=== PATIENT | female | born 1940 | race Caucasian/White ===

== ENCOUNTER 2016-09-28 04:55 | Day surgery (SDC) | payer OTHER, MEDICARE ==
[2016-09-25 12:48] VITALS: BMI 18.7
[2016-09-28] MEDS ORDERED: KETOROLAC TROMETHAMINE 30 MG/1 ML VIAL ONE (10:29)
[2016-09-28] MEDS ORDERED: PROPOFOL 20 ML ONE (10:29)
[2016-09-28] MEDS ORDERED: DEXAMETHASONE SOD PHOSPHATE 4 MG/1 ML VIAL ONE (10:29)
[2016-09-28] MEDS ORDERED: ROCURONIUM BROMIDE 50 MG/5 ML VIAL ONE (10:29)
[2016-09-28] MEDS ORDERED: MIDAZOLAM HCL 2 MG/2 ML SINGLE DOSE VIAL ONE (10:29)
[2016-09-28] MEDS ORDERED: LACTATED RINGERS SOLUTION 1,000 ML IV SCH (10:45)
[2016-09-28] MEDS ORDERED: PROMETHAZINE HCL 25 MG/1 ML VIAL IVPUSH PRN (10:45)
[2016-09-28] MEDS ORDERED: ONDANSETRON 4 MG/2 ML VIAL IVPUSH PRN (10:45)
--- NOTE | 2016-09-28 11:01 | PROC ---
Procedure Note Procedure: BRONCHSCOPY NOTE After discussing the risks and benefits of the procedure including bleeding and pneumothorax, informed consent was obtained. Pt was placed under general anesthesia and intubated with size 8.0 ETT by anesthesia. [employer] video bronchoscope was passed via the ETT and the airways were examined down to the subsegmental level. The luisana was sharp, no endobronchial lesions were noted on either side. There were scattered mucous plugs throughout the airways. LLL posterior subsegment was visualized were the CT abnormality was and there was no obstruction. LLL washed, samples to be sent for culture and cytology. Bronchoscope then withdrawn and procedure terminated. No immediate complications. Pre-op Dx: atelectasis Post-op Dx: same likely due to mucous plugging Plan: - f/u cultures and cytology Tyler Whipple MD
[2016-09-28 12:14] VITALS: TEMP 98
[2016-09-28 13:02] VITALS: PULSE 73
[2016-09-28 13:58] VITALS: BP 120/74
--- NOTE | 2016-09-29 14:33 | PATH ---
Cytology Non-Gynecological Report Patient Name: JODEE PETERS [facility]. Rec. #: [id number] /Age/Gender: 1940 (Age: 75) / F Account: [id number] Location: [facility] [place] [facility] Taken: 09/28/2016 Received: 09/28/2016 Reported: 09/29/2016 Physicians: Tyler Whipple M.D. Specimen(s) Received LEFT LOWER LOBE WASHINGS Clinical History Atelectasis Final Diagnosis LUNG, LEFT LOWER LOBE, BRONCHIAL WASHINGS: SATISFACTORY FOR EVALUATION. NO MALIGNANT CELLS IDENTIFIED. REACTIVE BRONCHIAL CELLS, MACROPHAGES AND ACUTE INFLAMMATION. Comment: Special stains for fungal and acid-fast organisms are pending; results will be reported in an addendum. Electronically Signed Davion Becker M.D. Gross Description Received is few tissue fresh fluid in 50% alcohol. Two cytofunnel slides and one cell block are made.
== END 2016-09-28 13:30 | disposition home or self-care (01) ==
LOC: JASU-SURG 04:55
PROVIDERS: ATTEND Internal Medicine
PROC: 8E0WXBF Computer Assisted Procedure of Trunk Region, With Fluoroscopy (ICD-10-PCS; 2016-09-28)
PROC: 0B9J8ZX Drainage of Left Lower Lung Lobe, Via Natural or Artificial Opening Endoscopic, Diagnostic (ICD-10-PCS; principal; 2016-09-28 10:00)
DX: J98.11 Atelectasis (principal)
CPT/HCPCS: 87070; 87102; 87116; 87205; 87206; 87210; 88108; 88305-TC; 88312-TC; 94760

== ENCOUNTER 2017-04-04 23:15 | Emergency (ER) | payer OTHER, MEDICARE ==
[2017-04-05 00:19] VITALS: BP 165/98; PULSE 77; TEMP 98.2; BMI 20.9
[2017-04-05] MEDS ORDERED: FAMOTIDINE 20 MG/50 ML IVPB 50 ML IVPB ONE ×2 (01:59→02:16)
[2017-04-05] MEDS ORDERED: methylPREDNISolone NA SUCC 125 MG/2 ML VIAL IVPB ONE (01:59)
[2017-04-05] MEDS ORDERED: methylPREDNISolone NA SUCC 125 MG/2 ML VIAL ONE ×2 (02:16→02:17)
--- NOTE | 2017-04-05 02:29 | PDOC ---
History of Present Illness - General Chief Complaint: Rash Stated Complaint: Allergic Reaction Time Seen by Provider: 04/05/17 01:11 History Source: Patient Exam Limitations: No Limitations - History of Present Illness Initial Comments: 04/05/17 02:24 76yo Female patient presents to ED c/o rash to back, trunk, hips, upper extremities starting 2 hours ago. Patient states she went out for dinner ate baked clams, and filet sole. When she got home, she began itching underneath her arms. Patient removed upper garments and noticed welts and hives to underarm and antecubital regions bilaterally. She denies diff breathing, CP, Back pain, n/v/d, fever, or any other complaints at this time. Timing/Duration: reports: just prior to arrival Severity: Yes: moderate Location: reports: extremities, torso. denies: none, face, feet, genitalia, generalized, hands, other, scalp Respiratory Risk Factors: reports: no cause identified. denies: exposure to illness, exposure to allergen, foods, insect bite, insect sting, medications, pollen, soaps, other Modifying Factors: worse with: antihistamine, calamine lotion, prednisone, scratching, topical steriods, other Associated Symptoms: reports: change in skin texture, hives, other (welts) Past History - Travel Traveled outside of the country in the last 30 days: No Close contact w/someone who was outside of country & ill: No - Past Medical History Allergies/Adverse Reactions: Allergies Allergy/AdvReac Type Severity Reaction Status Date / Time procaine HCl [From Novocain] Allergy Intermediate Verified 04/05/17 00:13 Iodinated Contrast Media - Allergy Verified 04/05/17 00:13 Oral and [IV Dye, Iodine Containing Contrast ] epinephrine AdvReac Intermediate Verified 04/05/17 00:13 lansoprazole [From Prevacid] AdvReac Intermediate Elevated Verified 04/05/17 00: 13 Blood Pressure DUST Allergy SOB Uncoded 04/05/17 00:13 NEXIUM AdvReac Intermediate Difficulty Uncoded 04/05/17 00:13 Breathing Home Medications: Ambulatory Orders Losartan Potassium [Cozaar -] 25 mg PO DAILY 07/02/12 Calcium Carbonate/Vitamin D3 [Calcium 500 + Vit D 400 Tablet] 1 each PO DAILY Aspirin [ASA -] 325 mg PO DAILY 07/23/15 Mometasone Furoate [Asmanex 220Mcg -] 1 inh IH DAILY 07/23/15 Albuterol Sulfate [Proair Hfa -] 1 - 2 inh PO QID PRN 07/24/15 Multivitamins [Multivit ([facility] Formulary)] 1 tab PO DAILY 07/24/15 Alendronate Sodium [Binosto] 70 mg PO WEEKLY 09/25/16 Ascorbate Calcium [Vitamin C] 500 mg PO DAILY 09/25/16 Cholecalciferol (Vitamin D3) [Vitamin D3] 400 unit PO BID 09/25/16 L.acidoph,Paracasei, B.lactis [Probiotic] 1 each PO HS 09/25/16 Triamcinolone Acetonide [Nasacort] 10.8 ml NS DAILY 09/25/16 Famotidine [Pepcid -] 40 mg PO BID #14 tablet 04/05/17 Prednisone 10 mg PO ASDIR #16 tablet 04/05/17 Anemia: No Asthma: Yes Cancer: Yes (BREAST) Cardiac Disorders: Yes (Mitral valve prolapse) CVA: No COPD: No CHF: No Dementia: No Diabetes: No GI Disorders: Yes (IBS, diverticulosis) Disorders: No HTN: Yes Hypercholesterolemia: No Liver Disease: No Seizures: No Thyroid Disease: Yes (Hipolito thyroiditis) Other medical history: Osteoporosis, eczema - Surgical History Abdominal Surgery: No Appendectomy: No Cardiac Surgery: No Cholecystectomy: Yes (LAP) Lung Surgery: No Neurologic Surgery: No Orthopedic Surgery: No - Psycho/Social/Smoking Cessation Hx Suicidal Ideation: No Smoking Status: No Smoking History: Never smoked Have you smoked in the past 12 months: No Number of Cigarettes Smoked Daily: 0 If you are a former smoker, when did you quit?: 1966 Information on smoking cessation initiated: No Hx Alcohol Use: No Drug/Substance Use Hx: No Substance Use Type: None Hx Substance Use Treatment: No Review of Systems - Review of Systems Able to Perform ROS?: Yes Is the patient limited Lithuanian proficient: No Integumentary: Yes: Erythema, Pruritus, Rash, Other (Hives and Welts) All Other Systems: Reviewed and Negative *Physical Exam - Vital Signs Last Vital Signs Temp Pulse Resp BP Pulse Ox 98.2 F 77 20 165/98 97 04/05/17 00:13 04/05/17 00:13 04/05/17 00:13 04/05/17 00:13 04/05/17 00:13 - Physical Exam General Appearance: Yes: Nourished, Appropriately Dressed, Mild Distress. No: Apparent Distress, Moderate Distress, Severe Distress Neck: positive: Trachea midline, Supple. negative: Stridor, Lymphadenopathy (R) , Lymphadenopathy (L) Respiratory/Chest: positive: Lungs Clear, Normal Breath Sounds. negative: Chest Tender, Respiratory Distress, Accessory Muscle Use, Labored Respiration, Rapid RR, Rhonchi, Stridor, Wheezing Cardiovascular: positive: Regular Rhythm, Regular Rate Gastrointestinal/Abdominal: positive: Normal Bowel Sounds, Flat, Soft. negative : Distended, Guarding, Rebound, Tenderness Extremity: positive: Normal Capillary Refill, Normal Inspection, Normal Range of Motion. negative: Pedal Edema, Swelling, Calf Tenderness, Erythema, Inflammation Integumentary: positive: Normal Color, Dry, Warm, Erythema, Hives, Other (Welts) . 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, Fully Oriented, Alert, Normal Mood/ Affect, Normal Response, Motor Strength 5/5 ED Treatment Course - Medications Given in the ED: ED Medications Discontinued Medications Generic Name Dose Route Start Last Admin Trade Name Freq PRN Reason Stop Dose Admin Diphenhydramine HCl 25 mg 04/05/17 01:59 04/05/17 02:15 Benadryl Injection - IVPUSH 04/05/17 02:00 25 mg ONCE ONE Administration Methylprednisolone Sodium Succinate 125 mg 04/05/17 01:59 04/05/17 02:15 Solu-Medrol - IVPB 04/05/17 02:00 125 mg ONCE ONE Administration *DC/Admit/Observation/Transfer Diagnosis at time of Disposition: Allergic reaction Qualifiers: Encounter type: initial encounter Qualified Code(s): T78.40XA - Allergy, unspecified, initial encounter - Discharge Dispostion Disposition: HOME Condition at time of disposition: Improved Admit: No - Prescriptions Prescriptions: Famotidine [Pepcid -] 40 mg PO BID #14 tablet Prednisone 10 mg PO ASDIR #16 tablet - Patient Instructions Printed Discharge Instructions: DI for Adverse Drug Reaction -- Allergic Additional Instructions: Take medications as prescribed. Follow up with your primary care provider. Print Language: DIVEHI
[2017-04-05] MEDS ORDERED: predniSONE 20 MG TABLET (UD) PO SCH (10:00)
== END 2017-04-05 04:14 | disposition home or self-care (01) ==
LOC: JER 23:15
PROC: 3E033GC Introduction of Other Therapeutic Substance into Peripheral Vein, Percutaneous Approach (ICD-10-PCS; principal; 2017-04-04)
PROC: 3E0333Z Introduction of Anti-inflammatory into Peripheral Vein, Percutaneous Approach (ICD-10-PCS; 2017-04-04)
PROC: 3E033GC Introduction of Other Therapeutic Substance into Peripheral Vein, Percutaneous Approach (ICD-10-PCS; 2017-04-04)
DX: L50.0 Allergic urticaria (principal); T78.49XA Other allergy, initial encounter; X58.XXXA Exposure to other specified factors, initial encounter; I10 Essential (primary) hypertension; E06.3 Autoimmune thyroiditis; J45.909 Unspecified asthma, uncomplicated; Z85.3 Personal history of malignant neoplasm of breast
CPT/HCPCS: 96365; 96375; 99281-25

== ENCOUNTER 2017-04-05 22:36 | Emergency (ER) | payer OTHER, MEDICARE ==
[2017-04-05 22:47] VITALS: BP 156/95; PULSE 81; TEMP 98; BMI 20.9
--- NOTE | 2017-04-05 22:59 | PDOC ---
Attending Attestation - Resident Resident Name: leyda - HPI HPI: 04/05/17 22:59 76-year-old female was here yesterday for hives and paretic rash and developed some more hives this evening. She came in because she was concerned that maybe it was spread to her eyes. I explained to her that she didn't have shingles and the hives, nontender her eyes, although she might have some periorbital edema which she does not now. 04/05/17 22:59 - Physicial Exam PE: 04/05/17 22:59 Well-nourished, well-developed 76-year-old female looking ambulance stated age presented because she has had recurrent hives She has a history of multiple environmental allergies Uvula midline, no edema Lungs are clear to auscultation. There is no wheezing or crackles Heart was a regular rate and rhythm S1, S2. Abdomen is soft, nontender, no guarding Extremities a few scattered hives Alert and oriented 3, ambulatory - Medical Decision Making 04/05/17 23:01 Patient has a follow-up appointment with her doctor tomorrow. She is driving herself home and will stop and give some Benadryl.
--- NOTE | 2017-04-05 23:09 | PDOC ---
History of Present Illness - General Chief Complaint: Allergic Reaction Stated Complaint: ALLERGIC REACTION Time Seen by Provider: 04/05/17 22:46 - History of Present Illness Initial Comments: 04/05/17 23:04 76 yo female with h/o previous multiple drug, food, and contact allergens who presents for allergic reaction. She reports widespread, redness, itching, and rash involving extremities, groin, buttock, hip, and around mouth. Denies any new contact exposures to detergent, soaps, clothing, laundry, shampoo, or recent outdoor contact exposure. She recalls eating seafood within the past 24 hours and possibly attributed widespread allergic reaction to food intake. Denies OTC antihistamine use or topical application for symptoms. Denies eye involvement of rash, airway compromise, SOB, or mucosal involvement. Past History - Past Medical History Allergies/Adverse Reactions: Allergies Allergy/AdvReac Type Severity Reaction Status Date / Time procaine HCl [From Novocain] Allergy Intermediate Verified 04/05/17 00:13 Iodinated Contrast Media - Allergy Verified 04/05/17 00:13 Oral and [IV Dye, Iodine Containing Contrast ] epinephrine AdvReac Intermediate Verified 04/05/17 00:13 lansoprazole [From Prevacid] AdvReac Intermediate Elevated Verified 04/05/17 00: 13 Blood Pressure DUST Allergy SOB Uncoded 04/05/17 00:13 NEXIUM AdvReac Intermediate Difficulty Uncoded 04/05/17 00:13 Breathing Home Medications: Ambulatory Orders Losartan Potassium [Cozaar -] 25 mg PO DAILY 07/02/12 Calcium Carbonate/Vitamin D3 [Calcium 500 + Vit D 400 Tablet] 1 each PO DAILY Aspirin [ASA -] 325 mg PO DAILY 07/23/15 Mometasone Furoate [Asmanex 220Mcg -] 1 inh IH DAILY 07/23/15 Albuterol Sulfate [Proair Hfa -] 1 - 2 inh PO QID PRN 07/24/15 Multivitamins [Multivit ([facility] Formulary)] 1 tab PO DAILY 07/24/15 Alendronate Sodium [Binosto] 70 mg PO WEEKLY 09/25/16 Ascorbate Calcium [Vitamin C] 500 mg PO DAILY 09/25/16 Cholecalciferol (Vitamin D3) [Vitamin D3] 400 unit PO BID 09/25/16 L.acidoph,Paracasei, B.lactis [Probiotic] 1 each PO HS 09/25/16 Triamcinolone Acetonide [Nasacort] 10.8 ml NS DAILY 09/25/16 Famotidine [Pepcid -] 40 mg PO BID #14 tablet 04/05/17 Prednisone 10 mg PO ASDIR #16 tablet 04/05/17 Anemia: No Asthma: Yes Cancer: Yes (BREAST) Cardiac Disorders: Yes (Mitral valve prolapse) CVA: No COPD: No CHF: No Dementia: No Diabetes: No GI Disorders: Yes (IBS, diverticulosis) Disorders: No HTN: Yes Hypercholesterolemia: No Liver Disease: No Seizures: No Thyroid Disease: Yes (Hipolito thyroiditis) - Surgical History Abdominal Surgery: No Appendectomy: No Cardiac Surgery: No Cholecystectomy: Yes (LAP) Lung Surgery: No Neurologic Surgery: No Orthopedic Surgery: No - Psycho/Social/Smoking Cessation Hx Suicidal Ideation: No Smoking Status: No Smoking History: Never smoked Have you smoked in the past 12 months: No Number of Cigarettes Smoked Daily: 0 If you are a former smoker, when did you quit?: 1966 Hx Alcohol Use: No Drug/Substance Use Hx: No Substance Use Type: None Hx Substance Use Treatment: No Review of Systems - Review of Systems Comments:: 04/05/17 23:09 GENERAL/CONSTITUTIONAL: No fever or chills. No weakness. HEAD, EYES, EARS, NOSE AND THROAT: No change in vision. No ear pain or discharge. No sore throat. CARDIOVASCULAR: No chest pain or shortness of breath RESPIRATORY: No cough, wheezing, or hemoptysis. GASTROINTESTINAL: No nausea, vomiting, diarrhea or constipation. GENITOURINARY: No dysuria, frequency, or change in urination. MUSCULOSKELETAL: No joint or muscle swelling or pain. No neck or back pain. SKIN: + Rash NEUROLOGIC: No headache, vertigo, loss of consciousness, or change in strength/ sensation. ENDOCRINE: No increased thirst. No abnormal weight change HEMATOLOGIC/LYMPHATIC: No anemia, easy bleeding, or history of blood clots. ALLERGIC/IMMUNOLOGIC: No hives or skin allergy. *Physical Exam - Vital Signs Last Vital Signs Temp Pulse Resp BP Pulse Ox 98 F 81 18 156/95 99 04/05/17 22:43 04/05/17 22:43 04/05/17 22:43 04/05/17 22:43 04/05/17 22:43 - Physical Exam Comments: 04/05/17 23:09 GENERAL: Awake, alert, and fully oriented, in no acute distress HEAD: No signs of trauma, normocephalic, atraumatic EYES: PERRLA, EOMI, sclera anicteric, conjunctiva clear ENT: Auricles normal inspection, hearing grossly normal, nares patent, oropharynx clear without exudates. Moist mucosa NECK: Normal ROM, supple, no lymphadenopathy, JVD, or masses LUNGS: No distress, speaks full sentences, clear to auscultation bilaterally HEART: Regular rate and rhythm, normal S1 and S2, no murmurs, rubs or gallops, peripheral pulses normal and equal bilaterally. ABDOMEN: Soft, nontender, normoactive bowel sounds. No guarding, no rebound. No masses EXTREMITIES: Normal inspection, Normal range of motion, no edema. No clubbing or cyanosis. NEUROLOGICAL: Cranial nerves II through XII grossly intact. Normal speech, normal gait, no focal sensorimotor deficits SKIN: + Rash/wheals over anterior upper and lower extremities, perioral involvement, trunk, BL hip and groin. Skin is Warm, Dry, normal turgor. Medical Decision Making - Medical Decision Making 04/05/17 23:10 Pt. is 76 yo female with h/o of multiple drug/food allergies and contact hypersensitivity reactions who presents with diffuse rash. Pt. denies airway or mucosal involvement within 24 hours since onset of diffuse rash. Was advised on OTC management of symptoms and suggested oral antihistamine/diphenhydramine for symptom relief. No other intervention needed. *DC/Admit/Observation/Transfer Diagnosis at time of Disposition: Allergic reaction Qualifiers: Encounter type: subsequent encounter Qualified Code(s): T78.40XD - Allergy, unspecified, subsequent encounter Contact dermatitis Qualifiers: Contact dermatitis type: unspecified - Discharge Dispostion Disposition: HOME Condition at time of disposition: Stable Admit: No - Attestations Physician Attestion: 04/05/17 23:16 I, Dr. Alex Sanches, attest that this document has been prepared under my direction and personally reviewed by me in its entirety. I further attest, that it accurately reflects all work, treatment, procedures and medical decision -making performed by me.
== END 2017-04-05 23:56 | disposition home or self-care (01) ==
LOC: JER 22:36
DX: L50.0 Allergic urticaria (principal); T78.40XD Allergy, unspecified, subsequent encounter; I10 Essential (primary) hypertension; J45.909 Unspecified asthma, uncomplicated; I34.1 Nonrheumatic mitral (valve) prolapse; E06.3 Autoimmune thyroiditis; M81.8 Other osteoporosis without current pathological fracture
CPT/HCPCS: 99282-25

== ENCOUNTER 2017-07-07 07:27 | Day surgery (SDC) | payer OTHER, MEDICARE ==
[2017-06-11 14:07] VITALS: BMI 20.9
[2017-07-07] MEDS ORDERED: PROPOFOL 20 ML ONE ×2 (08:30)
[2017-07-07 09:18] VITALS: TEMP 98.1
[2017-07-07 11:10] VITALS: BP 163/86; PULSE 75
--- NOTE | 2017-07-08 11:42 | PATH ---
Surgical Pathology Report Patient Name: JODEE PETERS [facility]. Rec. #: [id number] /Age/Gender: 1940 (Age: 76) / F Account: [id number] Location: [facility] Taken: 07/07/2017 Received: 07/07/2017 Reported: 07/08/2017 Physicians: Sasha Read M.D. Specimen(s) Received A: BX CECAL POLYP B: BX RIGHT COLON POLYP Clinical History Adenoma surveillance Polyps, diverticulosis Final Diagnosis A. COLON, CECUM, BIOPSY: TUBULAR ADENOMA. B. COLON, RIGHT, BIOPSY: COLONIC MUCOSA WITH NO PATHOLOGIC CHANGES. NO ACTIVE COLITIS, ARCHITECTURAL DISTORTION, GRANULOMATA, OR DYSPLASIA IDENTIFIED. NO MICROSCOPIC COLITIS IDENTIFIED (NO LYMPHOCYTIC OR COLLAGENOUS COLITIS IDENTIFIED). Electronically Signed Tyler Solorio M.D. Gross Description A. Received in formalin, labeled "biopsy cecal polyp" is a nava, irregular portion of soft tissue measuring 0.3 cm. in greatest dimension. The specimen is submitted in toto in one cassette. B. Received in formalin, labeled "biopsy right colon polyp" are 2 nava, irregular portions of soft tissue measuring 0.1 and 0.2 cm. in greatest dimension. The specimens are submitted in toto in one cassette. 07/07/201707/07/2017
== END 2017-07-07 10:30 | disposition home or self-care (01) ==
LOC: JASU-ENDO 07:27
PROVIDERS: ATTEND Internal Medicine Gastroenterology
PROC: 0DBH8ZX Excision of Cecum, Via Natural or Artificial Opening Endoscopic, Diagnostic (ICD-10-PCS; 2017-07-07)
PROC: 0DBK8ZX Excision of Ascending Colon, Via Natural or Artificial Opening Endoscopic, Diagnostic (ICD-10-PCS; principal; 2017-07-07 09:00)
DX: Z86.010 Personal history of colon polyps (principal); D12.0 Benign neoplasm of cecum; D12.2 Benign neoplasm of ascending colon; K57.30 Diverticulosis of large intestine without perforation or abscess without bleeding; K64.8 Other hemorrhoids
CPT/HCPCS: 88305-TC

== ENCOUNTER 2019-07-26 08:36 | Day surgery (SDC) | payer OTHER, MEDICARE ==
[2019-07-26 10:01] VITALS: BMI 20.5
[2019-07-26 11:09] VITALS: TEMP 97.7
[2019-07-26 13:18] VITALS: BP 151/74; PULSE 75
--- NOTE | 2019-07-27 16:13 | PATH ---
Surgical Pathology Report Patient Name: JODEE PETERS [facility]. Rec. #: [id number] /Age/Gender: 1940 (Age: 78) / F Account: [id number] Location: [facility]-ENDOS[facility] Taken: 07/26/2019 Received: 07/26/2019 Reported: 07/27/2019 Physicians: Sasha Read M.D. Specimen(s) Received A: SECOND PORTION AND BULB OF DUODENUM B: ANTRUM C: ASCENDING COLON POLYP Clinical History Occult GI bleeding, rule out ulcer and GERD, colonic adenoma surveillance Postoperative diagnosis: Atrophic gastritis, colon polyp Final Diagnosis A. DUODENUM, SECOND PORTION AND DUODENAL BULB, BIOPSY: DUODENAL MUCOSA WITH MILD CHRONIC DUODENITIS. B. STOMACH, ANTRUM, BIOPSY: GASTRIC ANTRAL MUCOSA WITH MILD CHRONIC GASTRITIS. IMMUNOHISTOCHEMICAL STAIN FOR H. PYLORI IS NEGATIVE. C. ASCENDING COLON, POLYP, BIOPSY: TUBULAR ADENOMA. Electronically Signed Lilliam Garcia M.D. Gross Description A. Received in formalin, labeled "biopsy second portion of duodenum and duodenal bulb" are 3 nava, irregular portions of soft tissue ranging from 0.3-0.4 cm. in greatest dimension. The specimens are submitted in toto in one cassette. B. Received in formalin, labeled "antrum biopsy" are 3 nava, irregular portions of soft tissue averaging 0.3 cm. in greatest dimension. The specimens are submitted in toto in one cassette. C. Received in formalin, labeled "ascending colon polyp" are 4 nava, irregular portions of soft tissue ranging from 0.2-0.3 cm. in greatest dimension. The specimens are submitted in toto in one cassette. 07/26/2019 saudi07/26/2019
== END 2019-07-26 12:05 | disposition home or self-care (01) ==
LOC: JASU-ENDO 08:36
PROVIDERS: ATTEND Internal Medicine Gastroenterology
PROC: 0DB68ZX Excision of Stomach, Via Natural or Artificial Opening Endoscopic, Diagnostic (ICD-10-PCS; 2019-07-26)
PROC: 0DBK8ZX Excision of Ascending Colon, Via Natural or Artificial Opening Endoscopic, Diagnostic (ICD-10-PCS; principal; 2019-07-26 09:45)
DX: Z12.11 Encounter for screening for malignant neoplasm of colon (principal); K92.1 Melena; Z86.010 Personal history of colon polyps; D12.2 Benign neoplasm of ascending colon; K64.8 Other hemorrhoids; K57.30 Diverticulosis of large intestine without perforation or abscess without bleeding; K29.40 Chronic atrophic gastritis without bleeding; I10 Essential (primary) hypertension; J44.9 Chronic obstructive pulmonary disease, unspecified

== ENCOUNTER 2020-08-11 15:40 | Emergency (ER) | payer OTHER, MEDICARE | END 2020-08-11 16:30 | disposition home or self-care (01) | LOC: JVIRT 15:40 | DX: Z03.818 Encounter for observation for suspected exposure to other biological agents ruled out (principal) | CPT/HCPCS: C9803; Q3014-GT; U0003 ==

== ENCOUNTER → 2021-04-09 | Day surgery (SDC) | payer OTHER, MEDICARE | END | disposition home or self-care (01) | LOC: FMAMMOTONE 11:50 | PROVIDERS: ATTEND Surgery | PROC: 0HBU3ZX Excision of Left Breast, Percutaneous Approach, Diagnostic (ICD-10-PCS; principal; 2021-04-09) | DX: N60.32 Fibrosclerosis of left breast (principal); N60.82 Other benign mammary dysplasias of left breast; N64.89 Other specified disorders of breast; R92.8 Other abnormal and inconclusive findings on diagnostic imaging of breast | CPT/HCPCS: 19081; 76098-TC-FY; 87899; A4648 ==

== ENCOUNTER 2021-05-14 04:19 | Day surgery (SDC) | payer OTHER, MEDICARE ==
[2021-05-12 16:03] VITALS: BMI 21.1
[2021-05-14] MEDS ORDERED: LIDOCAINE 1%/EPI 1:100000 (20 ML MULTI DOSE VIAL) ONE (10:06)
[2021-05-14] MEDS ORDERED: COCAINE HCL 4% TOPICAL SOLUTION 4 ML BOTTLE TP ONE ×2 (10:07→10:39)
[2021-05-14] MEDS ORDERED: MIDAZOLAM HCL 2 MG/2 ML SINGLE DOSE VIAL ONE (10:14)
[2021-05-14] MEDS ORDERED: PROPOFOL 20 ML ONE (10:14)
[2021-05-14] MEDS ORDERED: ROCURONIUM BROMIDE 50 MG/5 ML SYRINGE ONE (10:14)
[2021-05-14] MEDS ORDERED: LIDOCAINE HCL/PF 2% SDV 5ML VIAL ONE (10:14)
[2021-05-14] MEDS ORDERED: DEXAMETHASONE SOD PHOSPHATE 4 MG/1 ML VIAL ONE (10:15)
[2021-05-14] MEDS ORDERED: ONDANSETRON 4 MG/2 ML VIAL IVPUSH PRN (10:19)
[2021-05-14] MEDS ORDERED: ceFAZolin SODIUM 1 GM VIAL ONE (10:34)
[2021-05-14] MEDS ORDERED: ceFAZolin SODIUM 1 GM VIAL IVPB ONE (10:36)
[2021-05-14] MEDS ORDERED: LIDOCAINE 1%/EPI 1:100000 (20 ML MULTI DOSE VIAL) IJ ONE ×2 (10:40)
[2021-05-14] MEDS ORDERED: GLYCOPYRROLATE 0.2 MG/1 ML VIAL ONE ×2 (11:59→12:14)
[2021-05-14] MEDS ORDERED: SODIUM CHLORIDE 0.9% P/F 10 ML VIAL IJ ONE (12:06)
[2021-05-14] MEDS ORDERED: oxyCODONE HCL 5 MG TABLET PO PRN (12:23)
[2021-05-14] MEDS ORDERED: ACETAMINOPHEN 325 MG TABLET (FP) PO PRN (12:23)
[2021-05-14] MEDS ORDERED: LACTATED RINGERS SOLUTION 1,000 ML IV SCH (12:30)
[2021-05-14] MEDS ORDERED: ONDANSETRON 4 MG/2 ML VIAL ONE (14:06)
[2021-05-14 18:08] VITALS: BP 160/68; PULSE 70; TEMP 97.8
== END 2021-05-14 16:30 | disposition home or self-care (01) ==
LOC: JASU-SURG 04:19
PROVIDERS: ATTEND Otolaryngology
PROC: 09TV8ZZ Resection of Left Ethmoid Sinus, Via Natural or Artificial Opening Endoscopic (ICD-10-PCS; 2021-05-14)
PROC: 09TU8ZZ Resection of Right Ethmoid Sinus, Via Natural or Artificial Opening Endoscopic (ICD-10-PCS; 2021-05-14)
PROC: 8E09XBZ Computer Assisted Procedure of Head and Neck Region (ICD-10-PCS; 2021-05-14)
PROC: 09CX8ZZ Extirpation of Matter from Left Sphenoid Sinus, Via Natural or Artificial Opening Endoscopic (ICD-10-PCS; 2021-05-14)
PROC: 09CW8ZZ Extirpation of Matter from Right Sphenoid Sinus, Via Natural or Artificial Opening Endoscopic (ICD-10-PCS; 2021-05-14)
PROC: 8E09XBZ Computer Assisted Procedure of Head and Neck Region (ICD-10-PCS; principal; 2021-05-14 09:30)
DX: J32.4 Chronic pansinusitis (principal); J33.9 Nasal polyp, unspecified; R43.0 Anosmia
CPT/HCPCS: 94760

== ENCOUNTER 2022-03-24 12:01 | Inpatient (IN) | payer OTHER, MEDICARE ==
[2022-03-24] MEDS ORDERED: SODIUM CHLORIDE 0.9% 500 ML INFUS.BAG IV ONE (15:27)
[2022-03-24 16:51] LABS: BASO % 0.6 % (0-2.0); EOS % 1.5 % (0-4.5); HEMATOCRIT 37.4 % (32.4-45.2); HEMOGLOBIN 12.6 GM/dL (10.7-15.3); LYMPH % 9.4 % (8-40); MCH 32.4 pg (25.7-33.7); MCHC 33.6 g/dl (32.0-36.0); MEAN CELL VOLUME 96.2 fl (80-96); MEAN PLT VOLUME 7.4 fl (7.5-11.1); MONO % 7.2 % (3.8-10.2); NEUT % 81.3 % (42.8-82.8); PLATELET COUNT 351 10^3/uL (134-434); RBC 3.88 M/mm3 (3.60-5.2); RDW 13.3 % (11.6-15.6); WHITE BLOOD COUNT 11.2 K/mm3 (4.0-10.0)
[2022-03-24 17:00] LABS: INR 1.08 (0.83-1.09); PROTHROMBIN TIME (PATIENT) 12.4 SEC (9.7-13.0)
[2022-03-24 17:03] LABS: ACTIVATED PTT 27.7 SECONDS (25.2-36.5)
[2022-03-24 17:22] LABS: ALBUMIN 3.5 g/dl (3.4-5.0)
[2022-03-24 17:25] LABS: CREATININE 0.7 mg/dL (0.55-1.3)
[2022-03-24 17:26] LABS: BILIRUBIN,TOTAL 1.2 mg/dL (0.2-1)
[2022-03-24] MEDS ORDERED: ASPIRIN 325 MG TABLET PO ONE (22:06)
[2022-03-24 22:25] LABS: CALCIUM 8.5 mg/dL (8.5-10.1)
[2022-03-24 22:26] LABS: ALBUMIN 3.3 g/dl (3.4-5.0); BLOOD UREA NITROGEN 12.8 mg/dL (7-18)
[2022-03-24 22:29] LABS: CREATININE 0.4 mg/dL (0.55-1.3)
[2022-03-24 22:31] LABS: TOT PROT 6.1 g/dl (6.4-8.2)
[2022-03-24] MEDS ORDERED: ASPIRIN 325 MG TABLET ONE (22:33)
[2022-03-24 22:56] LABS: BILIRUBIN,TOTAL 1.3 mg/dL (0.2-1)
[2022-03-25] MEDS ORDERED: ALBUTEROL SO4 HFA INHALER IH PRN (00:37)
[2022-03-25] MEDS ORDERED: diphenhydrAMINE HCL 25 MG CAPSULE (FP) PO PRN (00:37)
[2022-03-25 03:39] VITALS: BMI 22.1
[2022-03-25 08:17] LABS: BASO % 0.7 % (0-2.0); EOS % 3.2 % (0-4.5); HEMATOCRIT 33.2 % (32.4-45.2); MCH 32.4 pg (25.7-33.7); MCHC 33.1 g/dl (32.0-36.0); MEAN CELL VOLUME 97.8 fl (80-96); MEAN PLT VOLUME 7.5 fl (7.5-11.1); NEUT % 67.1 % (42.8-82.8); PLATELET COUNT 277 10^3/uL (134-434); RBC 3.39 M/mm3 (3.60-5.2); RDW 12.9 % (11.6-15.6); WHITE BLOOD COUNT 6.6 K/mm3 (4.0-10.0)
[2022-03-25 08:47] LABS: CALCIUM 8.4 mg/dL (8.5-10.1)
[2022-03-25 08:48] LABS: ALBUMIN 3.1 g/dl (3.4-5.0); BLOOD UREA NITROGEN 14.6 mg/dL (7-18)
[2022-03-25 08:50] LABS: BILIRUBIN,TOTAL 1.5 mg/dL (0.2-1); TOT PROT 5.8 g/dl (6.4-8.2)
[2022-03-25 08:51] LABS: CREATININE 0.5 mg/dL (0.55-1.3)
[2022-03-25] MEDS: metoPROLOL SUCCINATE 25 MG TAB.SR.24H (FP) PO SCH (09:31)
[2022-03-25] MEDS: HEPARIN NA (PORCINE) 5,000 UNITS/ML 1ML VIAL SQ SCH ×2 (09:31→21:42)
[2022-03-25] MEDS: MOMETASONE FUROATE 220 MCG/IH INHALER IH SCH ×2 (09:34→21:41)
[2022-03-25] MEDS ORDERED: ASPIRIN PO SCH (10:00)
[2022-03-25] MEDS ORDERED: CALCIUM CARBONATE PO SCH (10:00)
[2022-03-25] MEDS ORDERED: [UNRECOGNIZED DRUG - OTHER] PO SCH (10:00)
[2022-03-25] MEDS ORDERED: MAG PO SCH (10:00)
[2022-03-26 07:55] VITALS: BP 152/74; PULSE 83; TEMP 98.5
[2022-03-26] MEDS: metoPROLOL SUCCINATE 25 MG TAB.SR.24H (FP) PO SCH (09:04)
[2022-03-26] MEDS: HEPARIN NA (PORCINE) 5,000 UNITS/ML 1ML VIAL SQ SCH (09:04)
[2022-03-26] MEDS: MOMETASONE FUROATE 220 MCG/IH INHALER IH SCH (09:04)
[2022-03-26] MEDS ORDERED: LOSARTAN POTASSIUM 50 MG TABLET PO SCH (12:15)
== END 2022-03-26 13:55 | disposition home or self-care (01) | DRG 312 ==
LOC: JERFT 12:01 → JER 12:01 → JERBED 15:38 → J4W 03-25 00:20
PROVIDERS: ADMIT Internal Medicine; ATTEND Internal Medicine
DX: I95.1 Orthostatic hypotension (principal); I10 Essential (primary) hypertension; K21.9 Gastro-esophageal reflux disease without esophagitis; I34.1 Nonrheumatic mitral (valve) prolapse; M81.0 Age-related osteoporosis without current pathological fracture; G43.909 Migraine, unspecified, not intractable, without status migrainosus; L30.9 Dermatitis, unspecified; J44.9 Chronic obstructive pulmonary disease, unspecified; G47.33 Obstructive sleep apnea (adult) (pediatric); I34.0 Nonrheumatic mitral (valve) insufficiency; E78.00 Pure hypercholesterolemia, unspecified; I27.20 Pulmonary hypertension, unspecified; S30.0XXA Contusion of lower back and pelvis, initial encounter; W18.39XA Other fall on same level, initial encounter; Y93.B1 Activity, exercise machines primarily for muscle strengthening; Y92.89 Other specified places as the place of occurrence of the external cause
CPT/HCPCS: 0241U-QW; 36415; 70450-TC; 71045-TC-FY; 72192-TC; 73502-TC-RT-FY; 76641-TC-50; 77066-TC; 80053; 82550; 82607; 82962; 84443; 84484; 85025; 85610; 85730; 93005; 93010; 93306-TC; 93880-TC; 99285-25; G0279-TC; J1644

== ENCOUNTER 2022-04-29 04:19 | Day surgery (SDC) | payer OTHER, MEDICARE ==
[2022-04-24 09:04] VITALS: BMI 21.9
[2022-04-29 09:35] VITALS: TEMP 97.5
[2022-04-29 11:13] VITALS: BP 159/78; PULSE 75; RESP 18
== END 2022-04-29 10:35 | disposition home or self-care (01) ==
LOC: JASU-ENDO 04:19
PROVIDERS: ATTEND Internal Medicine Gastroenterology
PROC: 0DBK8ZX Excision of Ascending Colon, Via Natural or Artificial Opening Endoscopic, Diagnostic (ICD-10-PCS; principal; 2022-04-29 08:00)
DX: Z12.11 Encounter for screening for malignant neoplasm of colon (principal); D12.2 Benign neoplasm of ascending colon; K57.30 Diverticulosis of large intestine without perforation or abscess without bleeding; K64.8 Other hemorrhoids
CPT/HCPCS: 88305-TC

== ENCOUNTER 2023-01-27 04:34 | Day surgery (SDC) | payer OTHER, MEDICARE ==
[2023-01-25 15:10] VITALS: BMI 21.1
[2023-01-27] MEDS ORDERED: LIDOCAINE VISCOUS 2% ORAL/TOP 15 ML UNIT-DOSE CUP ONE (10:41)
[2023-01-27 11:49] VITALS: TEMP 98.6
[2023-01-27 13:19] VITALS: BP 124/59; PULSE 75; RESP 18
== END 2023-01-27 12:15 | disposition home or self-care (01) ==
LOC: JASU-ENDO 04:34 → EDSTATUS 11:00 → JASU-ENDO 12:15
PROVIDERS: ATTEND Internal Medicine Gastroenterology
PROC: 0DB78ZX Excision of Stomach, Pylorus, Via Natural or Artificial Opening Endoscopic, Diagnostic (ICD-10-PCS; 2023-01-27)
PROC: 0DB98ZX Excision of Duodenum, Via Natural or Artificial Opening Endoscopic, Diagnostic (ICD-10-PCS; principal; 2023-01-27 11:00)
DX: K29.70 Gastritis, unspecified, without bleeding (principal); K31.84 Gastroparesis
CPT/HCPCS: 88305-TC; 88342-TC

== ENCOUNTER 2023-02-20 11:43 | Emergency (ER) | payer OTHER, MEDICARE ==
[2023-02-20 12:01] VITALS: BP 205/72; PULSE 75; RESP 18; TEMP 98.1; BMI 20.7
== END 2023-02-20 13:36 | disposition home or self-care (01) ==
LOC: JER 11:43
DX: S81.812A Laceration without foreign body, left lower leg, initial encounter (principal); W22.8XXA Striking against or struck by other objects, initial encounter; Y93.9 Activity, unspecified; Y92.009 Unspecified place in unspecified non-institutional (private) residence as the place of occurrence of the external cause
CPT/HCPCS: 99282-25

== ENCOUNTER → 2023-04-19 | Day surgery (SDC) | payer OTHER, MEDICARE | END | disposition home or self-care (01) | LOC: FMAMMOTONE 10:22 | PROVIDERS: ATTEND Surgery | PROC: 0HBU3ZX Excision of Left Breast, Percutaneous Approach, Diagnostic (ICD-10-PCS; principal; 2023-04-19) | DX: N64.89 Other specified disorders of breast (principal); R92.8 Other abnormal and inconclusive findings on diagnostic imaging of breast | CPT/HCPCS: 19081; 76098-TC-FY; 87899; 88305-TC; A4648 ==